=== PATIENT | female | born 1980 | race American Indian/Alaskan Native ===

== ENCOUNTER 2020-10-10 08:34 | Observation (INO) | payer OTHER ==
[2020-10-03 11:02] LABS: Hematocrit 34.2 % (30.3-42.9); Hemoglobin 11.4 gm/dl (10.1-14.3); Mean Corpuscular HGB Conc 33 % (30-34); Platelet Count 302 K/mm3 (140-440); Red Cell Distribution Width 16.6 % (13.2-15.2)
[2020-10-03 11:13] LABS: Mean Corpuscular Volume 70 fl (79-97)
--- NOTE | 2020-10-03 11:15 | Anesthesia Consultation ---
Anesthesia Consult and Med Hx Date of service: 10/10/20 - Airway Anesthetic Teeth Evaluation: Chipped ROM Head & Neck: Adequate Mental/Hyoid Distance: Adequate Mallampati Class: Class II Intubation Access Assessment: Good - Pre-Operative Health Status ASA Pre-Surgery Classification: ASA2 Proposed Anesthetic Plan: General Nerve Block: TAP - Pulmonary Hx Smoking: No Hx Respiratory Symptoms: No (+2FS) Hx Sleep Apnea: No (CHANDANA PRE SCREEN LOW RISK) - Cardiovascular System Hx Hypertension: Yes (X 8 YRS) - Central Nervous System Hx Psychiatric Problems: Yes (Anxiety) - Hematic Hx Anemia: Yes Hx Sickle Cell Disease: No - Other Systems Hx Cancer: No Hx Obesity: No
[2020-10-03 11:20] LABS: Blood Urea Nitrogen 6 mg/dL (7-17); Calcium 9.5 mg/dL (8.4-10.2); Hemolysis Index 2
[2020-10-03 11:24] LABS: BUN/Creatinine Ratio 12
--- NOTE | 2020-10-07 14:43 | History and Physical Report ---
History of Present Illness Date of examination: 10/04/20 History of present illness: Patient has been reassessed/reevaluated. H&P has been reviewed. No interval changes. 40 y.o. female presents with menorrhagia and dysmenorrhea. Pt has a history of heavy, painful periods that have now interfered with her ability to perform her daily duties. Patient's work up has included several transvaginal ultrasound which have revealed features of suspected adenomyosis. Pt was started on Orilissa and Lysteda 05/2020 which initially provided relief, but not anymore, ferny. with her last two cycles. Rates ABD cramping 12/15, wears ultra tampon and Poise pads, changing q 35 min d/t saturation, and experiences dizziness, headaches, and lightheadedness. Cycle occurs at different times each month, lasts 7 days, with heavy bleeding pattern Day 3 - Day 6. Denies intermenstrual bleeding, dyspareunia, postcoital bleeding, thyroid disease, fibroids, PCOS, or polyps. Patient desires definitive treatment ] Vital Signs: Patient Profile: 40 Years Old Female LMP: 09/25/2020 Height: 65 inches (166.37 cm) Weight: 184 pounds BMI: 30.62 Temp: 98.1 degrees F BP sittin / 80 (left arm) Menstrual History: LMP (date): 09/25/2020 Past History : 7 Term Births: 2 Premature Births: 1 Living Children: 3 Para: 3 Mult. Births: 0 Prev : 2 Prev. attempt? none Aborta: 4 Elect. Ab: 1 Spont. Ab: 3 Ectopics: 0 # 1 Delivery date: 03/26/1999 Weeks Gestation: 36 labor: no Delivery type: Anesthesia type: general Delivery location: [place] Sex: Male weight: 7-3 Name: Maximo Comments: FLORINHT Stat # 2 Delivery date: 2003 Weeks Gestation: 6 Delivery type: SAB # 3 Delivery date: 12/30/2005 Weeks Gestation: 39 labor: no Delivery type: Anesthesia type: spinal Delivery location: [place] Infant Sex: Male weight: 6-5 Name: Harsha Comments: Elective # 4 Delivery date: 2006 Weeks Gestation: 5 Delivery type: SAB Comments: No D&C # 5 Delivery date: 2009 Delivery type: SAB # 6 Delivery date: 03/2011 Delivery type: SAB Comments: No D&C # 7 Delivery date: 08/2012 Delivery type: Delivery location: [facility] [place] Sex: Female [employer]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 of genital herpes: yes Partner hx. of genital herpes: no Hx of STD: none Other: dx 2001 Current Allergies (reviewed today): No known allergies Past Medical History: Fibroids Herniated disc Past Surgical History: Back surgery (2008) herniated disc Knee Arthroscopy (2007) right (1999) (2005) with Tubal Ligation (2012) Family History Summary: General Comments - FH: Family History Breast Cancer Family History of Cervical Cancer Family History of Diabetes Family History of CVA or Stroke Family History of Hypertension Family History of Ovarian Cancer No Family History of Colon Cancer No Family History of DVT/PE on OCP Social History: Patient is single- Risk Factors: Smoked Tobacco Use: Never smoker Smokeless Tobacco Use: Never Passive Smoke Exposure: no Caffeine Use: 0 drinks per day Exercise: no Seatbelt Use: 100 % Alcohol Use: yes Type: occ Review of Systems General Complains of fatigue. Denies fever, chills, sweats, anorexia, weakness, malaise, weight loss and sleep disorder. Complains of menorrhagia, pelvic pain and painful periods. Denies vaginal discharge, incontinence, dysuria, hematuria, urinary frequency, amenorrhea, abnormal vaginal bleeding, genital sores, decreased li tim, painful sex, urinary urgency, hot flashes, vaginal dryness, vaginal itching and vaginal odor. CV Denies chest pains, palpitations, syncope, dyspnea on exertion, orthopnea, PND and peripheral edema. Resp Denies cough, dyspnea at rest, excessive sputum, hemoptysis, wheezing and pleurisy. GI Denies nausea, vomiting, diarrhea, constipation, change in bowel habits, abdominal pain, melena, hematochezia, jaundice, gas/bloating, indigestion/heartburn, dysphagia and odynophagia. Breast Denies left breast lump, right breast lump, nipple discharge, bloody discharge from nipple, breast pain, abnormal mammogram and breast enlargement. Psych Denies depression, anxiety, irritability and mood swings. Past History Past Medical History: other (SEE HPI) Past Surgical History: , Other (SEE HPI FOR DETAILS) Social history: single, full code, other (SEE HPI FOR DETAILS) Family history: other (SEE HPI FOR DETAILS) Medications and Allergies Allergies Allergy/AdvReac Type Severity Reaction Status Date / Time No Known Allergies Allergy Verified 10/02/20 16:48 Home Medications Medication Instructions Recorded Confirmed Last Taken Type Elagolix Sodium [Orilissa] 150 mg PO DAILY 10/02/20 10/02/20 Unknown History Ibuprofen [Motrin] 800 mg PO DAILY 10/02/20 10/02/20 Unknown History amLODIPine [Norvasc] 10 mg PO DAILY 10/02/20 10/02/20 Unknown History Active Meds: Active Medications Acetaminophen (Acetaminophen 500 Mg Tab) 1,000 mg PO ONCE ONE Stop: 10/10/20 06:01 Celecoxib (Celecoxib 200 Mg Cap) 400 mg PO PREOP NR Stop: 10/10/20 23:59 Fentanyl (Fentanyl 100 Mcg/2 Ml Inj) 100 mcg IV ONCE ONE Stop: 10/10/20 06:01 Lactated Ringer's (Lactated Ringers) 1,000 mls @ 125 mls/hr IV DIRECT BLAISE Cefazolin Sodium (Ancef/Sterile Water 2 Gm/20 Ml) 2 gm in 20 mls @ 80 mls/hr IV PREOP NR; Protocol Stop: 10/10/20 23:59 Magnesium Oxide (Magnesium Oxide 400 Mg Tab) 400 mg PO ONCE ONE Stop: 10/10/20 06:01 Midazolam HCl (Midazolam 2 Mg/2 Ml Inj) 2 mg IV PREOP NR Stop: 10/10/20 06:01 Review of Systems Constitutional: other (SEE HPI FOR DETAILS) Exam - Physical Exam Narrative exam: HEENT: normocephalic, no lesions or deformities Skin no ulcers, xanthomas Chest: respiratory effort normal, clear to auscultation CV: regular, normal S1-S2, no murmur, no rub, no gallop Abdomen: soft, non-tender, no masses, bowel sounds normal Neuro: no gross anomalities Extremities: no clubbing, cyanosis, or edema [employer]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 No evidence of cystocele or rectocele. Cervix: normal appearance, no lesions, no discharge Uterus: normal position, midline, mobile Tender to palpation Adnexae: Tender to palpation Rectovaginal: exam defered - Constitutional Vitals: Temp Pulse Resp BP Pulse Ox 99.3 F 79 20 155/99 100 10/03/20 10:15 10/03/20 10:15 10/03/20 10:15 10/03/20 10:15 10/03/20 10:15 Results - Labs CBC & Chem 7: 10/03/20 00:01 10/03/20 00:01 Assessment and Plan - Patient Problems (1) Intramural leiomyoma of uterus Current Visit: No Status: Acute Plan to address problem: Diagnosis explained to patient . Questions answered. Discussed with patient various medical, surgical and radiological therapies common for treatment including expectant management, myomectomy hysterectomy and uterine artery embolization Patient desires hysterectomy Discussed risks and benefits of laparotomy, laparoscopy, vaginal and robotic assisted approaches for hysterectomies. Patient desires robotic assisted total hysterectomy. Consent reviewed and signed . The risks and alternatives for this surgery were reviewed with the patient. Discuss the risks of the surgery including infection, bleeding possibly heavy enough to require a blood transfusion, possible damage to bowel, bladder or ureter. Patient understand that this surgery with make her sterile.Patient understands if her ovaries are removed she will become menopausal. Also if unable to complete robitcally a laparotomy may be required. Patient understands her risks of adjacent organ damage is increased due to her previous surgery(ies) Patient understands and desires to proceed. (2) Dysmenorrhea Current Visit: No Status: Acute Plan to address problem: Probably secondary to adenomyosis vs myoma (3) Menorrhagia Current Visit: No Status: Acute Qualifiers: Menorrhagia type: with regular cycle Qualified Code(s): N92.0 - Excessive and frequent menstruation with regular cycle (4) Pelvic pain Current Visit: No Status: Acute
[~2020-10-10 08:34] MED LIST: ACETAMINOPHEN 500 MG TAB PO ONE; CELECOXIB 200 MG CAP PO NR; LACTATED RINGERS 1,000 ML IV SCH; MAGNESIUM OXIDE 400 MG TAB PO ONE; MIDAZOLAM 2 MG/2 ML INJ IV NR; ceFAZolin/Water 2 GM/20 ML 2 GM/20 ML SYRINGE IV NR; fentaNYL 100 MCG/2 ML INJ IV ONE
[2020-10-10] MEDS ORDERED: BACTERIOSTATIC SODIUM CHLORIDE 0.9% 30 ML VIAL INFILTRATI ONE (09:57)
[2020-10-10] MEDS ORDERED: ACETAMINOPHEN 500 MG TAB ONE (10:15)
[2020-10-10] MEDS ORDERED: fentaNYL 100 MCG/2 ML INJ ONE (10:16)
[2020-10-10] MEDS ORDERED: MAGNESIUM OXIDE 400 MG TAB PO ONE (10:17)
[2020-10-10] MEDS ORDERED: BUPIVACAINE/PF (0.25%) 2.5 MG/ML 30 ML VIAL INFILTRATI ONE (10:56)
[2020-10-10] MEDS ORDERED: dexAMETHasone 4 MG/ML VIAL ONE (10:57)
[2020-10-10] MEDS ORDERED: MIDAZOLAM 2 MG/2 ML INJ IV SCH (11:00)
[2020-10-10] MEDS ORDERED: SUCCINYLCHOLINE CHLORIDE 200 MG/10 ML INJ MDV ONE (11:35)
[2020-10-10] MEDS ORDERED: ROCURONIUM 50 MG/5 ML INJ IV ONE (11:35)
[2020-10-10] MEDS ORDERED: KETOROLAC 30 MG/1 ML INJ ONE (11:35)
[2020-10-10] MEDS ORDERED: propofoL 200 MG/20 ML VIAL IV ONE (11:36)
[2020-10-10] MEDS ORDERED: LIDOCAINE PF 100 MG/5 ML (CARDIAC SYRINGE) IV ONE (11:36)
[2020-10-10] MEDS ORDERED: dexAMETHasone 20 MG/5 ML VIAL ONE (11:36)
[2020-10-10] MEDS ORDERED: ONDANSETRON 4 MG/2 ML INJ ONE (11:36)
[2020-10-10] MEDS ORDERED: ESMOLOL 100 MG/10 ML INJ IV ONE (11:36)
[2020-10-10] MEDS ORDERED: GLYCOPYRROLATE 0.4 MG/2 ML INJ ONE (11:41)
[2020-10-10] MEDS ORDERED: NEOSTIGMINE 10MG/10 ML INJ MDV ONE (11:41)
[2020-10-10] MEDS ORDERED: NEOMY 40 MG/POLYMYXIN B 200,000 UNITS/ML (GU) AMPULE IR ONE ×2 (11:46→12:50)
[2020-10-10] MEDS ORDERED: HYDROmorphone 1 MG/1 ML INJ ONE (12:24)
[2020-10-10] MEDS ORDERED: SODIUM CHLORIDE 0.9% IRR 1,500 ML BOTTLE IR ONE (12:51)
[2020-10-10] MEDS ORDERED: SODIUM CHLORIDE 0.9% IRRIG SOLN 2000 ML IR ONE (12:51)
[2020-10-10] MEDS ORDERED: METHYLENE BLUE 50 MG/10 ML AMP ONE (13:41)
[2020-10-10] MEDS ORDERED: METHYLENE BLUE 50 MG/10 ML AMP IRRIGATION ONE (13:52)
--- NOTE | 2020-10-10 15:10 | Operative Report ---
Operative Report Operative Report: Date of procedure: October 10, 2020 Pre-operative diagnosis: Menorrhalgia, dysmenorrhea, pelvic pain and uterine leiomyomata Post-operative diagnosis: Same plus pelvic adhesive disease Procedure name(s):Robotic Assisted Total Hysterectomy with bilateral salpingectomy with lysis of adhesions Surgeon: Cayetano Cortés MD Floor Technician: Thea Groves, certified phlebotomy technician Anesthesia: General EBL: 50 cc Complications: None Findings: On exam on anesthesia patient with a severely anterior cervix patient with uterus approximately 8 to 10 weeks in size with extensive adhesions of anterior uterine to anterior abdominal wall and to the bladder. Omental adhesions to the anterior abdominal wall and fundus of the uterus. Bilaterally interrupted fallopian tubes with Filshie clips in place. Normal-appearing ovaries Specimen(s): Uterus with cervix and bilateral fallopian tubes Procedure: Patient was brought to the operating room where general anesthesia was induced without difficulty. Patient was placed in the dorsal lithotomy position. Prepped and draped in the usual sterile manner for robotic procedure. Walton catheter was placed without difficulty. Speculum was placed in the vagina. Patient's cervix was extremely anterior. A medium V-Care Uterine manipulator was placed without difficulty. Attention was now switched to the patient's abdomen. A vertical supra-umbilicus incision was made with a scalpel. A 10-12 trocar was placed in this incision under direct visualization. Intra-abdominal placement was verified with no evidence of internal organ damage. The patient pelvic findings were noted as above. It was determined that the patient was a candidate for robotic procedure. On both sides the umbilical incision at about 8 cm, incisions were made for robotic trocars. Each robotic trocar was placed under direct visualization with no evidence of internal organ damage. One 5 mm trocar was placed 2 fingerbreadths above the right iliac crest. A 5 mm camera was placed in the right lower quadrant trocar, the 10-12 trocar was removed and a Terrence Spencer laparoscopic port closure device was placed through this incision under direct visualization with no evidence of internal organ damage. The camera was then replaced into this port. At this time the patient was placed in extreme Trendelenburg. The da Isael robot was then docked on the patient's left side. The trocars connected to the robot appropriately robotic instruments were placed under direct visualization no evidence of internal organ damage.. At this time I took my place under the robotic operating zaman. Initially started with robotic scissors and lysis of adhesions of the omentum and started with the adhesions of this thick anterior uterine wall to the abdominal wall. During the lysis of adhesions a thick adhesion band was approach with unclear plaints of the bladder, and the decision was made to attempt to isolate the the uterine vessels. Starting on the patient's right side the ureter was identified and found to be out of the operative field. Using the robotic vessel sealer the mesosalpinx under the fallopian tube were cauterized and cut starting from the distal end. Utero-ovarian complex was then cauterized and cut. This was followed by cauterizing and cutting the right fallopian tube and right round ligament. The broad ligament was then opened. The posterior broad ligament was then excised. The uterine vessels were skeletonized. The ureter was clearly seen out of the operative field. The bladder was pushed away from the anterior uterus. Could not clearly form the bladder flap due to the thick adhesions but the right uterine vessels were visualized, then cauterized and cut. Attention was then switched to the patient's left side. The same procedure was repeated on the left side with perform the salpingectomy followed by isolating the uterine vessels cauterized and cutting. To better identify the location of the bladder, feel the bladder with 180 cc of methylene blue. The bladder was more clearly seen with no evidence of cystotomy. I then started the colpotomy posteriorly at 6:00 until the V-Care could be seen. This incision was extended from 6:00 to 9:00. Then from 6:00 to 3:00. The cervix now could be visualized through the colpotomy and continue to form colpotomy along the down along cervix. This again isolated the bladder and I then made more incisions anteriorly lysing the adhesions and cleared the uterus from the bladder and completed a colpotomy with no evidence of damage to the bladder. The delinquent tax collector assistant remove the uterus from through the colpotomy site. The vaginal cuff was irrigated and cauterized and found to be hemostatic. The cuff was closed with roboticly using 0 V- Lock suture. This closure was hemostatic after irrigation and Bovie. All pedicles were inspected and found to be hemostatic. The ureters were identified bilaterally and found to be functioning normal. The patient had clear urine in the Walton catheter with no evidence of mixture with blood. Leixe was placed on the cuff and pedicles for postoperative hemostasis . All instruments were then removed. The large trocar sites were closed in layers 2-0 Vicryl and 4-0 Monocryl. The smaller incisions were closed subcuticularly with 4-0 Monocryl. Dermabond was placed over the skin incisions. The patient tolerated procedure well. She was awakened in the operating room and accompanied to the recovery room in good condition.
--- NOTE | 2020-10-10 16:32 | Post Anesthesia Evaluation ---
- Post Anesthesia Evaluation Patient Participated: Yes Airway Patent: Yes Stable Respiratory Function: Yes Nausea/Vomiting: No Temp > 96.8F: Yes Pain Manageable: Yes Adequeate Hydration: Yes Anesthesia Complications: No
--- NOTE | 2020-10-10 16:32 | Anesthesia Day of Surgery ---
Anesthesia Day of Surgery - Day of Surgery Patient Examined: Yes Patient H&P Reviewed: Yes Patient is NPO: Yes
[2020-10-10] MEDS ORDERED: D5W/LACTATED RINGERS 1,000 ML IV SCH (16:50)
[2020-10-10] MEDS ORDERED: ONDANSETRON 4 MG/2 ML INJ IV PRN (16:50)
[2020-10-10] MEDS ORDERED: ACETAMINOPHEN 325 MG TAB PO PRN (16:50)
[2020-10-10] MEDS ORDERED: MAGNESIUM HYDROXIDE (MOM) ORAL LIQD UDC PO PRN (16:50)
[2020-10-10] MEDS: KETOROLAC 30 MG/1 ML INJ IV SCH ×2 (17:52→23:50)
[2020-10-10] MEDS: oxyCODONE /ACETAMINOPHEN 5-325MG TAB PO PRN (18:38)
--- NOTE | 2020-10-10 19:23 | Event Note ---
Date: 10/10/20 Day of surgery. Discuss operative findings with patient and questions answered. Patient is complaining of postop pain and slight nausea. Patient with some elevated blood pressures we will give her antihypertensive medication now. Patient without fever. Will ambulate in halls this evening. Good urine output. We will continue routine postoperative care.
[2020-10-10] MEDS: ceFAZolin/NS 1 GM/50 ML 1 GM/50 ML BAG IV SCH (19:57)
[2020-10-10] MEDS ORDERED: amLODIPine 10 MG TAB PO SCH (20:00)
[2020-10-10] MEDS: DOCUSATE SODIUM 100 MG CAP PO SCH (21:56)
[2020-10-11] MEDS: oxyCODONE /ACETAMINOPHEN 5-325MG TAB PO PRN ×2 (01:58→07:50)
[2020-10-11] MEDS: ceFAZolin/NS 1 GM/50 ML 1 GM/50 ML BAG IV SCH (03:34)
[2020-10-11] MEDS: KETOROLAC 30 MG/1 ML INJ IV SCH (05:30)
[2020-10-11 07:32] LABS: Hematocrit 30.6 % (30.3-42.9); Hemoglobin 10.2 gm/dl (10.1-14.3)
[2020-10-11] MEDS ORDERED: amLODIPine 10 MG TAB PO SCH (10:00)
[2020-10-11] MEDS: DOCUSATE SODIUM 100 MG CAP PO SCH (10:22)
--- NOTE | 2020-10-11 10:54 | Short Stay Summary ---
Short Stay Documentation Date of service: 10/10/20 Narrative H&P: See preoperative dictated history and physical - History Past Medical History: other (SEE HPI) Past Surgical History: , Other (SEE HPI FOR DETAILS) Social history: single, full code, other (SEE HPI FOR DETAILS) - Allergies and Medications Current Medications: Allergies No Known Allergies Allergy (Verified 10/02/20 16:48) Home Medications Medication Instructions Recorded Confirmed Last Taken Type Elagolix Sodium [Orilissa] 150 mg PO DAILY 10/02/20 10/10/20 10/07/20 08:00 History Ibuprofen [Motrin] 800 mg PO DAILY 10/02/20 10/10/20 10/07/20 08:00 History amLODIPine [Norvasc] 10 mg PO DAILY 10/02/20 10/10/20 10/09/20 18:00 History Ibuprofen [Motrin] 800 mg PO TID PRN #30 tablet 10/10/20 Unknown Rx oxyCODONE /ACETAMINOPHEN [Percocet 1 - 2 tab PO Q6HR PRN #20 tablet 10/10/20 Unknown Rx 5/325 mg] Active Medications Acetaminophen (Acetaminophen 325 Mg Tab) 650 mg PO Q4H PRN PRN Reason: Pain MILD(1-3)/Fever >100.5/MCCALLUM Last Admin: 10/10/20 21:56 Dose: 650 mg Documented by: Amlodipine Besylate (Amlodipine 10 Mg Tab) 10 mg PO DAILY [facility] Amlodipine Besylate (Amlodipine 10 Mg Tab) 10 mg PO QDAY [facility] Last Admin: 10/10/20 19:56 Dose: 10 mg Documented by: Docusate Sodium (Docusate Sodium 100 Mg Cap) 100 mg PO BID [facility] Last Admin: 10/11/20 10:22 Dose: 100 mg Documented by: Dextrose/Lactated Ringer's ([email or web address]) 1,000 mls @ 125 mls/hr IV DIRECT [facility] Last Admin: 10/11/20 05:21 Dose: 125 mls/hr Documented by: Ibuprofen (Ibuprofen 800 Mg Tab) 800 mg PO Q8H PRN PRN Reason: Pain, Moderate (4-6) Ketorolac Tromethamine (Ketorolac 30 Mg/1 Ml Inj) 30 mg IV Q6H [facility] Stop: 10/11/20 15:59 Last Admin: 10/11/20 05:30 Dose: 30 mg Documented by: Magnesium Hydroxide (Magnesium Hydroxide (Mom) Oral Liqd Udc) 30 ml PO Q4H PRN PRN Reason: Constipation Ondansetron HCl (Ondansetron 4 Mg/2 Ml Inj) 4 mg IV Q8H PRN PRN Reason: Nausea And Vomiting Oxycodone/Acetaminophen (Oxycodone /Acetaminophen 5-325mg Tab) 2 tab PO Q6H PRN PRN Reason: Pain, Moderate (4-6) Last Admin: 10/11/20 07:50 Dose: 2 tab Documented by: - Physical exam General appearance: no acute distress Integumentary: no rash HEENT: Atraumatic Lungs: Normal air movement Breasts: deferred Heart: Regular rate Gastrointestinal: normal, normoactive bowel sounds, tenderness (Appropriate postoperatively), distended (Appropriate post robotic assisted surgery), other (Incisions healing well with no evidence of infection) Female Genitourinary: deferred Rectal Exam: deferred Extremities: no ischemia Neurological: Normal gait, Normal speech - Brief post op/procedure progress note Date of procedure: 10/10/20 (See dictated operative note for details) - Hospital course Hospital course: Patient was admitted and underwent above procedure without complications. Her post operative course was benign she was afebrile throughout. Patient postoperative hematocrit was in an acceptable range. Patient had no orthostatic symptoms. Patient was tolerating regular diet and voiding without difficulty at time of discharge. Patient incision was healing well without evidence of infection. - Disposition Condition at discharge: Good - Discharge Diagnoses (1) Intramural leiomyoma of uterus Status: Acute (2) Dysmenorrhea Status: Acute (3) Menorrhagia Status: Acute Qualifiers: Menorrhagia type: with regular cycle Qualified Code(s): N92.0 - Excessive and frequent menstruation with regular cycle (4) Pelvic pain Status: Acute Short Stay Discharge Plan Activity: advance as tolerated Diet: regular Wound: open to air Additional Instructions: [] Smoking cessation referral if applicable(refer to patient education folder for contact #) [x] Refer to [facility] Booklet Patient instructed no heavy lifting for 4 weeks. No intercourse for 8 weeks. Call office for fever, chills, nausea, vomiting or pain not controlled by pain medications. Ambulation is encouraged. Patient's call for heavy vaginal bleeding. Patient instructed to keep her scheduled post operative office appointment. Call your doctor immediately for: * Fever > 100.5 * Heavy vaginal bleeding ( >1 pad per hour) * Severe persistent headache * Shortness of breath * Reddened, hot, painful area to leg or breast * Drainage or odor from incision. * Keep incision clean and dry at all times and follow doctor's instructions regarding bathing/showering Please call your doctor on the earliest business day for the follow up appointment. Follow up with: PRIMARY CARE, [Primary Care Provider] - 7 Days Forms: [facility] Discharge Summary, Discharge Signature Page Prescriptions: Ibuprofen [Motrin] 800 mg PO TID PRN #30 tablet PRN Reason: Pain oxyCODONE /ACETAMINOPHEN [Percocet 5/325 mg] 1 - 2 tab PO Q6HR PRN #20 tablet PRN Reason: Pain
[2020-10-11 11:33] VITALS: BP 110/72
[2020-10-11] MEDS ORDERED: IBUPROFEN 800 MG TAB PO PRN (15:28)
== END 2020-10-11 12:00 | disposition home or self-care (01) ==
LOC: OR 08:34 → OB 15:28
PROVIDERS: ADMIT Obstetrics & Gynecology; ATTEND Obstetrics & Gynecology
DX: N94.6 Dysmenorrhea, unspecified (principal); N92.0 Excessive and frequent menstruation with regular cycle; D25.1 Intramural leiomyoma of uterus; M51.26 Other intervertebral disc displacement, lumbar region; R10.2 Pelvic and perineal pain; Z98.890 Other specified postprocedural states; Z90.710 Acquired absence of both cervix and uterus; Z98.51 Tubal ligation status; Z79.899 Other long term (current) drug therapy
CPT/HCPCS: 36415; 58571; 64450; 80048; 81025; 84703; 85014; 85018; 85027; 86850; 86900; 86901; 88302; 88307; 96361; 96365; 96366; 96375; 96376; A4217; C1765; G0378; J0330; J0690; J1100; J1170; J1885; J2001; J2250; J2405; J2704; J2710; J3010; J7120; J7121; Q9968; S2900

== ENCOUNTER 2020-10-12 18:33 | Observation (INO) | payer OTHER ==
[2020-10-12 19:15] LABS: Red Cell Distribution Width 17.2 % (13.2-15.2)
[2020-10-12 19:18] LABS: Basophils % (Auto) 0.2 % (0.0-1.8); Eosinophils # (Auto) 0.1 K/mm3 (0.0-0.4); Eosinophils % (Auto) 0.3 % (0.0-4.3); Hematocrit 37.6 % (30.3-42.9); Hemoglobin 11.9 gm/dl (10.1-14.3); Lymphocytes # (Auto) 1.3 K/mm3 (1.2-5.4); Lymphocytes % (Auto) 6.9 % (13.4-35.0); Mean Corpuscular HGB Conc 32 % (30-34); Mean Corpuscular Volume 71 fl (79-97); Monocytes # (Auto) 0.9 K/mm3 (0.0-0.8); Platelet Count 329 K/mm3 (140-440); Red Blood Count 5.29 M/mm3 (3.65-5.03)
[2020-10-12 19:37] LABS: Alanine Aminotransferase 11 units/L (7-56); Blood Urea Nitrogen 9 mg/dL (7-17); Calcium 9.1 mg/dL (8.4-10.2); Hemolysis Index 4
[2020-10-12 20:03] LABS: BUN/Creatinine Ratio 18
[2020-10-12] MEDS ORDERED: MORPHINE 4 MG/1 ML INJ IV ONE (23:36)
[2020-10-12] MEDS ORDERED: ONDANSETRON 4 MG/2 ML INJ IV ONE (23:36)
[2020-10-12] MEDS ORDERED: CEFEPIME/NS 2 GM/100 ML 2 GM/100 ML BAG IV ONE (23:37)
[2020-10-12] MEDS ORDERED: SODIUM CHLORIDE 0.9% 1000 ML IV SOLN IV ONE (23:37)
--- NOTE | 2020-10-13 00:57 | Cat Scan Report ---
CT ABDOMEN AND PELVIS WITH CONTRAST HISTORY: abd pain incr wbc. COMPARISON: CT abdomen/pelvis from 02/27/2018 TECHNIQUE: CT images of the abdomen and pelvis were obtained following administration of intravenous contrast. All CT scans at this location are performed using CT dose reduction for ALARA by means of automated exposure control. CONTRAST: 100 ml of intravenous contrast administered. FINDINGS: Lungs/bones: There is mild streaky right basilar atelectasis with otherwise clear lungs. Degenerativ e changes are present in the spine and pelvis with no acute osseous abnormality. Abdomen/pelvis: There is a small amount of subcutaneous gas and also gas in the space of Retzius in this patient who reportedly had a recent hysterectomy. There is a complex collection with intermixed air in the deep midline pelvis measuring 3.8 x 3.8 cm on image #156 of series #2. This may represent a hematoma. The small bowel is diffusely abnormal with fluid-filled dilated appearance and extensive mucosal enhancement. There is gentle tapering in the distal small bowel. The liver contains several tiny simple cysts. The gallbladder, spleen, pancreas, adrenals, and kidney s appear unremarkable with a small simple cyst in the midpole on the left. Bladder is mostly collapsed but otherwise appears unremarkable. Uterus is surgically absent. IMPRESSION: 1. Postoperative change in the abdomen as outlined above with complex and deep mid pelvic collection, likely a hematoma or evolving abscess. This finding is not well organized this point in time if this is in fact an abscess. 2. Diffusely abnormal appearance of the bowel most likely representing ileus change given the diffuse nature a lack of a single transition point. Signer Name: Jake Alfaro MD Signed: 10/13/2020 12:53 AM Workstation Name: [id number]
[2020-10-13] MEDS ORDERED: MORPHINE 4 MG/1 ML INJ IV ONE (01:28)
--- NOTE | 2020-10-13 01:39 | Emergency Department Report ---
ED Abdominal Pain HPI - General Chief Complaint: Nausea/Vomiting/Diarrhea Stated Complaint: VOMITING Time Seen by Provider: 10/12/20 23:27 Source: patient Mode of arrival: Wheelchair Limitations: Physical Limitation - History of Present Illness Initial Comments: Patient is a 40-year-old F Citizen Of The [place] female who is presenting with abdominal pain and multiple episodes of nausea vomiting throughout the last day. Patient had a laparoscopic hip to direct to be performed on 10/10/2020. Patient states initially she was doing well after the surgery. She has had 2 bowel movement since the surgery the last was earlier today. Patient states she has had some a bdominal distention and a great deal of pain. States she has been vomiting and can't keep anything down. Denies fever dysuria cough cold or congestion. - Related Data Home Medications Medication Instructions Recorded Confirmed Last Taken Elagolix Sodium [Orilissa] 150 mg PO DAILY 10/02/20 10/10/20 10/07/20 08:00 Ibuprofen [Motrin] 800 mg PO DAILY 10/02/20 10/10/20 10/07/20 08:00 amLODIPine [Norvasc] 10 mg PO DAILY 10/02/20 10/10/20 10/09/20 18:00 Previous Rx's Medication Instructions Recorded Last Taken Type Ibuprofen [Motrin] 800 mg PO TID PRN #30 tablet 10/10/20 Unknown Rx oxyCODONE /ACETAMINOPHEN [Percocet 1 - 2 tab PO Q6HR PRN #20 tablet 10/10/20 Unknown Rx 5/325 mg] Allergies Allergy/AdvReac Type Severity Reaction Status Date / Time No Known Allergies Allergy Verified 10/12/20 18:45 ED Review of Systems ROS: Stated complaint: VOMITING Other details as noted in HPI Comment: All other systems reviewed and negative ED Past Medical Hx - Past Medical History Hx Hypertension: Yes (X 8 YRS) Hx Sickle Cell Disease: No Hx Headaches / Migraines: Yes (MIGRAINES WITH PEROIDS) - Social History Smoking Status: Never Smoker - Medications Home Medications: Home Medications Medication Instructions Recorded Confirmed Last Taken Type Elagolix Sodium [Orilissa] 150 mg PO DAILY 10/02/20 10/10/20 10/07/20 08:00 History Ibuprofen [Motrin] 800 mg PO DAILY 10/02/20 10/10/20 10/07/20 08:00 History amLODIPine [Norvasc] 10 mg PO DAILY 10/02/20 10/10/20 10/09/20 18:00 History Ibuprofen [Motrin] 800 mg PO TID PRN #30 tablet 10/10/20 Unknown Rx oxyCODONE /ACETAMINOPHEN [Percocet 1 - 2 tab PO Q6HR PRN #20 tablet 10/10/20 Unknown Rx 5/325 mg] ED Physical Exam - General Limitations: Physical Limitation General appearance: alert, in no apparent distress - Head Head exam: Present: atraumatic, normocephalic - Eye Eye exam: Present: normal appearance - ENT ENT exam: Present: mucous membranes moist - Neck Neck exam: Present: normal inspection - Respiratory Respiratory exam: Present: normal lung sounds bilaterally. Absent: respiratory distress, wheezes, rales, rhonchi - Cardiovascular Cardiovascular Exam: Present: regular rate, normal rhythm, normal heart sounds. Absent: systolic murmur, diastolic murmur, rubs, gallop - GI/Abdominal GI/Abdominal exam: Present: distended, tenderness (diffuse), normal bowel soun ds, hypoactive bowel sounds. Absent: guarding, rebound - Extremities Exam Extremities exam: Present: normal inspection - Back Exam Back exam: Present: normal inspection - Neurological Exam Neurological exam: Present: alert, oriented X3 - Psychiatric Psychiatric exam: Present: normal affect, normal mood - Skin Skin exam: Present: warm, dry, intact, normal color. Absent: rash ED Course Vital Signs 10/12/20 18:45 Temperature 98.4 F Pulse Rate 111 H Respiratory 20 Rate Blood Pressure 142/91 O2 Sat by Pulse 98 Oximetry ED Medical Decision Making - Lab Data Result diagrams: 10/12/20 19:06 10/12/20 19:06 Lab Results 10/12/20 10/12/20 10/12/20 Range/Units 19:06 19:06 23:52 WBC 18.4 H (4.5-11.0) K/mm3 RBC 5.29 H (3.65-5.03) M/mm3 Hgb 11.9 (10.1-14.3) gm/dl Hct 37.6 D (30.3-42.9) % MCV 71 L (79-97) fl MCH 23 L (28-32) pg MCHC 32 (30-34) % RDW 17.2 H (13.2-15.2) % Plt Count 329 (140-440) K/mm3 Lymph % (Auto) 6.9 L (13.4-35.0) % Hood % (Auto) 5.0 (0.0-7.3) % Eos % (Auto) 0.3 (0.0-4.3) % Baso % (Auto) 0.2 (0.0-1.8) % Lymph # (Auto) 1.3 (1.2-5.4) K/mm3 [place] # (Auto) 0.9 H (0.0-0.8) K/mm3 Eos # (Auto) 0.1 (0.0-0.4) K/mm3 Baso # (Auto) 0.0 (0.0-0.1) K/mm3 Seg Neutrophils % 87.6 H (40.0-70.0) % Seg Neutrophils # 16.1 H (1.8-7.7) K/mm3 Sodium 136 L (137-145) mmol/L Potassium 3.7 (3.6-5.0) mmol/L Chloride 99.1 (98-107) mmol/L Carbon Dioxide 24 (22-30) mmol/L Anion Gap 17 mmol/L BUN 9 (7-17) mg/dL Creatinine 0.5 L (0.6-1.2) mg/dL Estimated GFR > 60 ml/min BUN/Creatinine Ratio 18 % Glucose 127 H (65-100) mg/dL Lactic Acid 1.10 (0.7-2.0) mmol/L Calcium 9.1 (8.4-10.2) mg/dL Total Bilirubin 1.10 (0.1-1.2) mg/dL AST 22 (5-40) units/L ALT 11 (7-56) units/L Alkaline Phosphatase 61 (35-129) units/L Total Protein 7.9 (6.3-8.2) g/dL Albumin 4.0 (3.9-5) g/dL Albumin/Globulin Ratio 1.0 % - Radiology Data [facility] [address] [place] [address] Cat Scan Report Signed Patient: CAMERON PATHAK MR #: [id number] : 1980 Acct:[id number] Age/Sex: 40 / F ADM Date: 10/12/20 Loc: ED Attending Dr: Ordering Physician: GRACE MARRERO MD Date of Service: 10/12/20 Procedure(s): CT abdomen pelvis w con Accession Number(s): [id number] cc: GRACE MARRERO MD CT ABDOMEN AND PELVIS WITH CONTRAST HISTORY: abd pain incr wbc. COMPARISON: CT abdomen/pelvis from 02/27/2018 TECHNIQUE: CT images of the abdomen and pelvis were obtained following administration of intravenous contrast. All CT scans at this location are performed using CT dose reduction for ALARA by means of automated exposure control. CONTRAST: 100 ml of intravenous contrast administered. FINDINGS: Lungs/bones: There is mild streaky right basilar atelectasis with otherwise clear lungs. Degenerative changes are present in the spine and pelvis with no acute osseous abnormality. Abdomen/pelvis: There is a small amount of subcutaneous gas and also gas in the space of Retzius in this patient who reportedly had a recent hysterectomy. There is a complex collection with intermixed air in the deep midline pelvis measuring 3.8 x 3.8 cm on image #156 of series #2. This may represent a hematoma. The small bowel is diffusely abnormal with fluid- filled dilated appearance and extensive mucosal enhancement. There is gentle tapering in the distal small bowel. The liver contains several tiny simple cysts. The gallbladder, spleen, pancreas , adrenals, and kidneys appear unremarkable with a small simple cyst in the midpole on the left. Bladder is mostly collapsed but otherwise appears unremarkable. Uterus is surgically absent. IMPRESSION: 1. Postoperative change in the abdomen as outlined above with complex and deep mid pelvic collection, likely a hematoma or evolving abscess. This finding is not well organized this point in time if this is in fact an abscess. 2. Diffusely abnormal appearance of the bowel most likely representing ileus change given the diffuse nature a lack of a single transition point. Signer Name: Jkae Alfaro MD Signed: 10/13/2020 12:53 AM Workstation Name: [email or web address] - Medical Decision Making Patient continues to have pain throughout her ED stay however nausea did improve with some Zofran. Started on IV fluids. CT shows definite ileus. No transition point indicative of bowel obstruction. A 4 x 4 centimeter fluid collection seen. There is some worry about hematoma or abscess. This could also represent some serous fluid of course. Patient will be admitted to Dr. Eagle who will see the patient in a few hours. Critical care attestation.: If time is entered above; I have spent that time in minutes in the direct care of this critically ill patient, excluding procedure time. ED Disposition Clinical Impression: Abdominal pain, Ileus, postoperative, Pelvic fluid collection, Leukocytosis Disposition: OP ADMIT IP TO THIS HOSP Is pt being admited?: Yes Does the pt Need Aspirin: No Condition: Stable Time of Disposition: 01:38
[2020-10-13] MEDS ORDERED: SODIUM CHLORIDE 0.9% 1000 ML 1,000 ML IV SCH (01:45)
[2020-10-13 02:38] LABS: Bacteria,Urine 1+ /HPF (Negative); Bilirubin,Urine NEG (Negative); Blood,Urine LG (Negative); Color,Urine Yellow (Yellow); Mucus,Urine 3+ /HPF; Urobilinogen,Urine < 2.0 mg/dL (<2.0)
[2020-10-13 02:45] LABS: Protein,Urine >500 mg/dL (Negative)
[2020-10-13] MEDS ORDERED: KETOROLAC 30 MG/1 ML INJ IV ONE (04:14)
[2020-10-13] MEDS ORDERED: ONDANSETRON 4 MG/2 ML INJ IV PRN (04:40)
[2020-10-13] MEDS: METOCLOPRAMIDE 10 MG/2 ML INJ IV SCH ×4 (06:12→22:59)
[2020-10-13] MEDS: cefTRIAXone/NS 1 GM/50 ML 1 GM/50 ML BAG IV SCH (06:13)
[2020-10-13] MEDS: FAMOTIDINE 20 MG/2 ML INJ IV SCH ×3 (06:24→22:58)
[2020-10-13] MEDS: KETOROLAC 30 MG/1 ML INJ IV PRN ×3 (09:25→22:58)
--- NOTE | 2020-10-13 13:17 | History and Physical Report ---
History of Present Illness Date of examination: 10/13/20 Date of admission: 10/13/20 01:39 Chief complaint: Pelvic and back pain with N/V. POD#3 s/p BETH HDZ LOA History of present illness: Patient is a 40-year-old F [place] female who is presenting with abdominal, pelvic and back pain and multiple episodes of nausea vomiting throughout yesterday. She had a robotic assisted laparoscopic total hysterectomy with bilateral salpingectomy and lysis of adhesions performed on 10/10/2020. Patient states initially she was doing well after the surgery. She has had 2 bowel movement since the surgery the last was earlier yesterday. Patient states she has had some abdominal distention and a great deal of pain. States she has been vomiting and can't keep anything down. Denies fever, dysuria, cough, cold or congestion. She also denies vaginal bleeding or abnormal vaginal discharge. She also denies chest pain or shortness of breath. Past History : 7 Term Births: 2 Premature Births: 1 Living Children: 3 Para: 3 Mult. Births: 0 Prev : 2 Prev. attempt? none Aborta: 4 Elect. Ab: 1 Spont. Ab: 3 Ectopics: 0 # 1 Delivery date: 03/26/1999 Weeks Gestation: 36 labor: no Delivery type: Anesthesia type: general Delivery location: [place] Sex: Male weight: 7-3 Name: Maximo Comments: FLORINHT Stat # 2 Delivery date: 2003 Weeks Gestation: 6 Delivery type: SAB # 3 Delivery date: 12/30/2005 Weeks Gestation: 39 labor: no Delivery type: Anesthesia type: spinal Delivery location: [place] Infant Sex: Male weight: 6-5 Name: Harsha Comments: Elective # 4 Delivery date: 2006 Weeks Gestation: 5 Delivery type: SAB Comments: No D&C # 5 Delivery date: 2009 Delivery type: SAB # 6 Delivery date: 03/2011 Delivery type: SAB Comments: No D&C # 7 Delivery date: 08/2012 Delivery type: [place] [facility] [place] Sex: Female [employer] History Abnormal PAP: positive, 2003 repeat pap Uterine Anomaly: positive fibroids Infection History HIV Risk Eval: no Personal hx. of genital herpes: yes Partner hx. of genital herpes: no Hx of STD: none Other: dx 2001 Current Allergies (reviewed today): No known allergies Past Medical History: Hypertension Fibroids Herniated disc Past Surgical History: Back surgery (2008) herniated disc Knee Arthroscopy (2007) right (1999) (2005) with Tubal Ligation (2012) BETH HDZ LOA (10/10/2020) Family History Summary: General Comments - FH: Family History Breast Cancer Family History of Cervical Cancer Family History of Diabetes Family History of CVA or Stroke Family History of Hypertension Family History of Ovarian Cancer No Family History of Colon Cancer No Family History of DVT/PE on OCP Social History: Patient is single- Risk Factors: Smoked Tobacco Use: Never smoker Smokeless Tobacco Use: Never Passive Smoke Exposure: no Caffeine Use: 0 drinks per day Exercise: no Seatbelt Use: 100 % Alcohol Use: yes Type: Social Medications and Allergies Allergies Allergy/AdvReac Type Severity Reaction Status Date / Time No Known Allergies Allergy Verified 10/12/20 18:45 Home Medications Medication Instructions Recorded Confirmed Last Taken Type Elagolix Sodium [Orilissa] 150 mg PO DAILY 10/02/20 10/10/20 10/07/20 08:00 History Ibuprofen [Motrin] 800 mg PO DAILY 10/02/20 10/10/20 10/07/20 08:00 History amLODIPine [Norvasc] 10 mg PO DAILY 10/02/20 10/10/20 10/09/20 18:00 History Ibuprofen [Motrin] 800 mg PO TID PRN #30 tablet 10/10/20 Unknown Rx oxyCODONE /ACETAMINOPHEN [Percocet 1 - 2 tab PO Q6HR PRN #20 tablet 10/10/20 Unknown Rx 5/325 mg] Active Meds: Active Medications Amlodipine Besylate (Amlodipine 10 Mg Tab) 10 mg PO DAILY BLAISE Famotidine (Famotidine 20 Mg/2 Ml Inj) 20 mg IV BID BLAISE Last Admin: 10/13/20 06:24 Dose: 20 mg Documented by: Dextrose/Sodium Chloride (D5ns) 1,000 mls @ 125 mls/hr IV DIRECT BLAISE Ceftriaxone Sodium (Rocephin/Ns 1 Gm/50 Ml) 1 gm in 50 mls @ 100 mls/hr IV Q24H BLAISE; Protocol Last Admin: 10/13/20 06:13 Dose: 100 mls/hr Documented by: Ketorolac Tromethamine (Ketorolac 30 Mg/1 Ml Inj) 30 mg IV Q6H PRN PRN Reason: Pain, Moderate (4-6) Stop: 10/18/20 04:39 Last Admin: 10/13/20 09:25 Dose: 30 mg Documented by: Metoclopramide HCl (Metoclopramide 10 Mg/2 Ml Inj) 10 mg IV Q6HR BLAISE Stop: 10/14/20 00:01 Last Admin: 10/13/20 12:29 Dose: 10 mg Documented by: Ondansetron HCl (Ondansetron 4 Mg/2 Ml Inj) 4 mg IV Q8H PRN PRN Reason: Nausea And Vomiting Review of Systems All systems: negative Gastrointestinal: abdominal pain, nausea, vomiting Genitourinary Female: pelvic pain Musculoskeletal: other (Mid back pain) Exam - Physical Exam Narrative exam: Patient is resting in bed. Positive flatus today. States she vomited last at 230 yesterday. She has had 2 bowel movements since surgery. - Constitutional Vitals: Temp Pulse Resp BP Pulse Ox 99.1 F 98 H 16 136/95 97 10/13/20 11:46 10/13/20 11:46 10/13/20 11:46 10/13/20 11:46 10/13/20 11:46 General appearance: Present: mild distress - Respiratory Respiratory effort: normal Respiratory: bilateral: CTA - Cardiovascular Rhythm: regular - Extremities Extremities: no ischemia, No edema - Abdominal General gastrointestinal: Present: distended, normal bowel sounds. Absent: rigid Female genitourinary: Present: other (No blood noted on the patient's pad that she is currently wearing.) - Integumentary Integumentary: Present: clear, warm, dry (Incisions clean dry and intact) - Psychiatric Psychiatric: appropriate mood/affect, intact judgment & insight, memory intact, cooperative Results - Labs CBC & Chem 7: 10/12/20 19:06 10/12/20 19:06 Labs: Abnormal lab results 10/12/20 10/12/20 10/13/20 Range/Units 19:06 19:06 00:31 WBC 18.4 H (4.5-11.0) K/mm3 RBC 5.29 H (3.65-5.03) M/mm3 MCV 71 L (79-97) fl MCH 23 L (28-32) pg RDW 17.2 H (13.2-15.2) % Lymph % (Auto) 6.9 L (13.4-35.0) % [place] # (Auto) 0.9 H (0.0-0.8) K/mm3 Seg Neutrophils % 87.6 H (40.0-70.0) % Seg Neutrophils # 16.1 H (1.8-7.7) K/mm3 Sodium 136 L (137-145) mmol/L Creatinine 0.5 L (0.6-1.2) mg/dL Glucose 127 H (65-100) mg/dL U Epithel Cells (Auto) 14.0 H (0-13.0) /HPF - Imaging and Cardiology CT scan - abdomen: report reviewed CT scan - pelvis: report reviewed Assessment and Plan - Patient Problems (1) History of robot-assisted laparoscopic hysterectomy Current Visit: Yes Status: Acute Plan to address problem: POD#3 (2) Nausea Current Visit: Yes Status: Acute Plan to address problem: No vomiting since yesterday however patient is on scheduled Reglan. We will continue n.p.o. for now. Consider advancing to clear liquids tomorrow. (3) Hypertension Current Visit: Yes Status: Chronic Plan to address problem: Continue amlodipine with sips of water for now (4) Hematuria Current Visit: Yes Status: Acute Plan to address problem: Urine culture is pending. With patient's complaint of mid back pain we will proceed with bilateral renal ultrasound today. (5) Back pain Current Visit: Yes Status: Chronic Qualifiers: Back pain laterality: bilateral (6) Abdominal pain Current Visit: Yes Status: Acute Qualifiers: Abdominal location: right lower quadrant Qualified Code(s): R10.31 - Right lower quadrant pain Plan to address problem: No obvious evidence of appendicitis. (7) Ileus, postoperative Current Visit: Yes Status: Acute Plan to address problem: Continue n.p.o. (8) Leukocytosis Current Visit: Yes Status: Acute Plan to address problem: May be secondary to surgery however will repeat in a.m. (9) Pelvic fluid collection Current Visit: Yes Status: Acute Plan to address problem: Probable secondary to postoperative changes. However will continue Rocephin for possible abscess formation. (10) Pelvic pain Current Visit: No Status: Acute
[2020-10-13] MEDS: D5W/0.9% NACL 1,000 ML IV SCH (16:39)
[2020-10-13] MEDS: amLODIPine 10 MG TAB PO SCH (16:50)
[2020-10-13] MEDS: HYDROmorphone 1 MG/1 ML INJ IV PRN (19:06)
--- NOTE | 2020-10-13 21:54 | Ultrasound Report ---
ULTRASOUND RENAL INDICATION: hematuria, back pain. COMPARISON: No relevant prior imaging study available. FINDINGS: RIGHT KIDNEY: Size: 11.7 cm. Echogenicity: Normal. Cortical thickness: Normal. Hydronephrosis: None. Cyst or mass: None. Stones: None. LEFT KIDNEY: Size: 10.9 cm. Echogenicity: Normal. Cortical thickness: Normal. Hydronephrosis: None. Cyst or mass: None. Stones: None. Urinary Bladder: No significant abnormality. Free Fluid: None. Additional Findings: None. IMPRESSION: No significant abnormality. Signer Name: Pieter Cohen MD Signed: 10/13/2020 9:50 PM Workstation Name: [id number]
[2020-10-14] MEDS: HYDROmorphone 1 MG/1 ML INJ IV PRN (04:17)
[2020-10-14] MEDS: cefTRIAXone/NS 1 GM/50 ML 1 GM/50 ML BAG IV SCH (05:45)
[2020-10-14 05:54] LABS: Basophils % (Auto) 0.3 % (0.0-1.8); Eosinophils # (Auto) 0.3 K/mm3 (0.0-0.4); Eosinophils % (Auto) 2.6 % (0.0-4.3); Hematocrit 33.1 % (30.3-42.9); Hemoglobin 10.7 gm/dl (10.1-14.3); Lymphocytes # (Auto) 1.2 K/mm3 (1.2-5.4); Lymphocytes % (Auto) 10.2 % (13.4-35.0); Mean Corpuscular HGB Conc 32 % (30-34); Mean Corpuscular Volume 71 fl (79-97); Monocytes # (Auto) 0.8 K/mm3 (0.0-0.8); Platelet Count 284 K/mm3 (140-440); Red Blood Count 4.69 M/mm3 (3.65-5.03); Red Cell Distribution Width 17.1 % (13.2-15.2)
[2020-10-14 06:20] LABS: Blood Urea Nitrogen 9 mg/dL (7-17); Calcium 8.6 mg/dL (8.4-10.2); Hemolysis Index 6
[2020-10-14 06:45] LABS: BUN/Creatinine Ratio 18
--- NOTE | 2020-10-14 08:49 | Progress Note ---
Assessment and Plan - Patient Problems (1) History of robot-assisted laparoscopic hysterectomy Current Visit: Yes Status: Acute Plan to address problem: -con't routine post op care -npo for now (2) Ileus, postoperative Current Visit: Yes Status: Acute Plan to address problem: -pt now w/o nausea or emesis since being npo. Will try to ADAT once evaluated by IR if procedure not being done today or no need for the procedure. -ambulate today (3) Nausea Current Visit: Yes Status: Acute (4) Pelvic fluid collection Current Visit: Yes Status: Acute Plan to address problem: -will consult IR for need for draiange of the collection -plan of care d/w pt and questions were addressed and answered -Blood cx negative and WBC improved this am -con't current antibx for now. Subjective - Subjective Date of service: 10/14/20 Principal diagnosis: POD#4 s/pRATH 1) illeus 2)n/v 3)?pelvic abscess Interval history: Pt states she is feeling a little better today and desires to eat. She does state she had both flattus and BM on yesterday and no emesis since being npo and since taking her blood pressure medications. I d/w that I am going to consult IR for input in terms of possible draiange of ? abscess vs hematoma. I advised that this is due to temp she had earlier this am and that it was felt the changes on CT was related to post operative changes. She expressed understanding. I also advised that she will remain npo until seen by the IR team. Pt expressed understanding and agrees with plan of care. Patient reports: appetite normal, voiding normally, pain well controlled, flatus, bowel movement, ambulating normally, no dizzy ambulation, no nauseated Objective - Vital Signs Latest vital signs: Vital Signs Temp Pulse Resp Resp BP Pulse Ox 10/14/20 04:21 99.7 F H 101 H 20 138/94 97 10/14/20 04:17 14 10/13/20 23:55 98.7 F 105 H 20 129/87 99 10/13/20 22:58 12 10/13/20 20:18 100.9 F H 113 H 20 145/96 98 10/13/20 20:00 98 10/13/20 19:06 20 10/13/20 16:22 98.8 F 101 H 16 133/80 97 10/13/20 14:52 20 10/13/20 11:46 99.1 F 98 H 16 136/95 97 10/13/20 09:30 20 10/13/20 09:25 20 Intake and Output 10/13/20 10/14/20 10/14/20 22:59 06:59 14:59 Output Total 75 200 Balance -75 -200 Output: Urine 75 200 Void 75 200 Other: Total, Output Amount 75 100 # Voids Void 200 - Exam Breasts: Present: deferred Cardiovascular: Present: Normal S1, Normal S2 Lungs: Present: Clear to auscultation, Normal air movement Abdomen: Present: normal appearance, soft, distention (mildly), normal bowel sounds Uterus: Present: other (surgically abscent) Extremities: Present: normal. Absent: tenderness, edema Incision: Present: normal, dry, intact - Labs Labs: Abnormal lab results 10/14/20 10/14/20 Range/Units 05:26 05:26 WBC 11.6 H (4.5-11.0) K/mm3 MCV 71 L (79-97) fl MCH 23 L (28-32) pg RDW 17.1 H (13.2-15.2) % Lymph % (Auto) 10.2 L (13.4-35.0) % Seg Neutrophils % 79.9 H (40.0-70.0) % Seg Neutrophils # 9.3 H (1.8-7.7) K/mm3 Creatinine 0.5 L (0.6-1.2) mg/dL
--- NOTE | 2020-10-14 10:16 | Event Note ---
Date: 10/14/[address] scan. 40-year-old female with RATH with post operative fluid collection immediately superior to the vaginal cuff. Unfortunately, the fluid collection is completely surrounded by bowel making this non-accessible. Given its location adjacent to the vaginal cuff, it will likely drain through the vaginal cuff if it is not a sterile collection. Consider repeat CT scan in the next few days for reevaluation. Consider infectious disease consult.
[2020-10-14] MEDS: KETOROLAC 30 MG/1 ML INJ IV PRN ×2 (10:44→21:00)
[2020-10-14] MEDS: FAMOTIDINE 20 MG/2 ML INJ IV SCH ×2 (10:44→21:00)
[2020-10-14] MEDS: amLODIPine 10 MG TAB PO SCH ×2 (10:45→17:51)
[2020-10-14] MEDS: D5W/0.9% NACL 1,000 ML IV SCH (12:16)
--- NOTE | 2020-10-14 12:36 | Event Note ---
Date: 10/14/[address] Ibrahim with thanks. Will con't antibx for now and allow clear liquids at this time. Recommendations noted.
[2020-10-15] MEDS: cefTRIAXone/NS 1 GM/50 ML 1 GM/50 ML BAG IV SCH (05:20)
[2020-10-15] MEDS: KETOROLAC 30 MG/1 ML INJ IV PRN ×2 (05:29→16:50)
[2020-10-15] MEDS ORDERED: oxyCODONE /ACETAMINOPHEN 5-325MG TAB PO PRN (11:00)
[2020-10-15] MEDS: amLODIPine 10 MG TAB PO SCH (11:22)
[2020-10-15] MEDS: FAMOTIDINE 20 MG/2 ML INJ IV SCH ×2 (12:33→22:05)
--- NOTE | 2020-10-15 12:38 | Progress Note ---
Assessment and Plan Afebrile >24hours Doing well Will have dietary talk with her for her food preference. Will consider repeat CT scan in the next few days for reevaluation Hold ID consult for now since she is improving with current regimen Will consider changing to po antibiotics once tolerating solids and UC ID and sens available Plan of care discussed with patient, she voiced and agrees with plan of care - Patient Problems (1) History of robot-assisted laparoscopic hysterectomy Current Visit: Yes Status: Acute (2) Pelvic fluid collection Current Visit: Yes Status: Acute Plan to address problem: Per Dr. Ibrahim will consider repeat CT scan Continue Rocephin (3) Nausea Current Visit: Yes Status: Acute Plan to address problem: Improved (4) Hypertension Current Visit: Yes Status: Chronic Plan to address problem: Continue Amlodipine (5) Hematuria Current Visit: Yes Status: Acute Plan to address problem: ID and sensitivity pending (6) Back pain Current Visit: Yes Status: Chronic Qualifiers: Back pain laterality: bilateral (7) Abdominal pain Current Visit: Yes Status: Acute Qualifiers: Abdominal location: right lower quadrant Qualified Code(s): R10.31 - Right lower quadrant pain Plan to address problem: Improved (8) Ileus, postoperative Current Visit: Yes Status: Resolved (9) Leukocytosis Current Visit: Yes Status: Resolved (10) Pelvic pain Current Visit: No Status: Acute Plan to address problem: Improved Subjective - Subjective Date of service: 10/15/20 Principal diagnosis: POD#5 s/p RATH 1) illeus 2)n/v 3)?pelvic abscess Interval history: Resting in bed, pain improved. Desires clear liquids b/c she does not like the mechanical soft diet. Slight vaginal discharge. No bleeding. Ambulating well. Patient reports: appetite normal, flatus Objective - Vital Signs Latest vital signs: Vital Signs Temp Pulse Resp BP BP Pulse Ox 10/15/20 08:00 0 L 10/15/20 07:44 98.0 F 82 18 131/90 98 10/15/20 04:24 99.2 F 92 H 20 139/85 98 10/15/20 01:00 98.5 F 92 H 18 134/94 134/94 97 10/14/20 20:45 98.3 F 92 H 18 137/90 99 10/14/20 19:30 98 10/14/20 17:51 77 141/94 10/14/20 17:00 98.1 F 87 18 141/94 100 Intake and Output 10/14/20 10/15/20 10/15/20 22:59 06:59 14:59 Intake Total 480 Output Total 600 Balance -120 Intake: Oral 480 Output: Urine 600 Void 600 Other: Total, Intake Amount 240 Total, Output Amount 200 Voiding Method Toilet # Voids Void 1 - Exam Breasts: Present: deferred Cardiovascular: Present: Regular rate Lungs: Present: Clear to auscultation, Normal air movement Abdomen: Present: normal appearance, soft, normal bowel sounds Extremities: Present: normal. Absent: tenderness, edema Incision: Present: normal, dry, intact
[2020-10-16] MEDS: cefTRIAXone/NS 1 GM/50 ML 1 GM/50 ML BAG IV SCH (06:01)
[2020-10-16] MEDS: KETOROLAC 30 MG/1 ML INJ IV PRN (06:01)
[2020-10-16] MEDS: FAMOTIDINE 20 MG/2 ML INJ IV SCH ×2 (09:43→10:00)
[2020-10-16] MEDS: amLODIPine 10 MG TAB PO SCH ×2 (11:00→11:45)
--- NOTE | 2020-10-16 11:51 | Discharge Summary ---
Providers - Providers Date of Admission: 10/13/20 01:39 Date of discharge: 10/16/20 Attending physician: MARIFER EAGLE 10/14/20 08:53 Consult to Physician [CONS] Routine Comment: Consulting Provider: TIN LIU Physician Instructions: Reason For Exam: evaluate for drainage of pelvic fluid collection 10/15/20 13:00 Consult to Dietitian/Nutrition [CONS] Routine Physician Instructions: Dietary Consult yoan Eagle MD request Reason For Exam: Reason for Consult: Diet education Primary care physician: [employer] Hospitalization Reason for admission: Persistent nausea, vomiting, pelvic pain and pelvic fluid collection Condition: Stable Pertinent studies: Abdominal pelvic CT scan, renal ultrasound Procedures: None Hospital course: Please see dictated history and physical for details. Patient was admitted for pelvic fluid collection seen on CT scan with a possible abscess versus hematoma also patient with a ileus noted on CT scan. Patient was then placed n.p.o. and started on prophylactic antibiotics. She was also given antiemetic medication. Patient nausea and vomiting resolved with patient having normal bowel movements passing flatus. Patient was advance diet which she tolerated well. Rule out abscess patient only had highest temp of 100.9 hospital day one but with afebrile throughout the rest of hospital stay. Blood cultures returned negative. Patient renal ultrasound was also normal was done secondary to hematuria noted on admission. Patient's ileus resolved also most likely pelvic hematoma due to her recent surgery patient pain improved on pain medication and patient desires discharge home. Disposition: TO HOME OR SELFCARE Final Discharge Diagnosis (Prints w/discharge instructions): Ileus probable pelvic hematoma. Time spent for discharge: 15 minutes - Discharge Diagnoses (1) Pelvic pain Status: Acute (2) Abdominal pain Status: Acute Qualifiers: Abdominal location: right lower quadrant Qualified Code(s): R10.31 - Right lower quadrant pain (3) Ileus, postoperative Status: Resolved (4) Pelvic fluid collection Status: Acute (5) History of robot-assisted laparoscopic hysterectomy Status: Chronic (6) Hypertension Status: Chronic Qualifiers: Hypertension type: primary hypertension Qualified Code(s): I10 - Essential (primary) hypertension Core Measure Documentation - Palliative Care Palliative Care/ Comfort Measures: Not Applicable - Core Measures Any of the following diagnoses?: none Exam - Constitutional Vitals: Temp Pulse Resp BP Pulse Ox 98.7 F 78 20 137/95 0 L 10/16/20 07:53 10/16/20 07:53 10/16/20 09:53 10/16/20 07:53 10/16/20 09:53 General appearance: Present: no acute distress - EENT ENT: hearing intact - Respiratory Respiratory effort: normal - Cardiovascular Rhythm: regular - Extremities Extremities: no ischemia, pulses intact - Abdominal General gastrointestinal: Present: soft, tender (Slightly appropriate for postoperative state), non-distended, other (Incisions healing well) Female genitourinary: Present: deferred - Rectal Rectal Exam: deferred - Integumentary Integumentary: Present: clear, warm, dry - Musculoskeletal Musculoskeletal: gait normal, strength equal bilaterally - Psychiatric Psychiatric: appropriate mood/affect, intact judgment & insight - Neurologic Neurologic: moves all extremities Plan Activity: advance as tolerated Diet: regular, clear liquids Additional Instructions: Patient instructed no heavy lifting for 4 weeks. No intercourse for 8 weeks. Call office for fever, chills, nausea, vomiting or pain not controlled by pain medications. Ambulation is encouraged. Patient's call for heavy vaginal bleeding. Patient instructed to keep her scheduled post operative office appointment. For tomorrow Plan of Treatment: Patient to keep her appointment tomorrow probable formal ultrasound to evaluate her pelvic fluid collection noted on admission Follow up with: PRIMARY CAREMD [Primary Care Provider] - 7 Days
[2020-10-16 13:18] VITALS: BP 135/86
== END 2020-10-16 13:45 | disposition home or self-care (01) ==
LOC: ED 18:33 → OB 10-13 01:39
PROVIDERS: ADMIT Obstetrics & Gynecology; ATTEND Obstetrics & Gynecology
DX: N99.840 Postprocedural hematoma of a genitourinary system organ or structure following a genitourinary system procedure (principal); K56.7 Ileus, unspecified; D72.829 Elevated white blood cell count, unspecified; R10.2 Pelvic and perineal pain; R11.0 Nausea; I10 Essential (primary) hypertension; D25.9 Leiomyoma of uterus, unspecified; M51.25 Other intervertebral disc displacement, thoracolumbar region; G43.909 Migraine, unspecified, not intractable, without status migrainosus; R31.9 Hematuria, unspecified; M54.9 Dorsalgia, unspecified; Z79.899 Other long term (current) drug therapy; Z98.891 History of uterine scar from previous surgery; Z98.51 Tubal ligation status; Z90.710 Acquired absence of both cervix and uterus
CPT/HCPCS: 36415; 74177; 76770; 80048; 80053; 81001; 82140; 85025; 87040; 87076; 87086; 87186; 96361; 96365; 96366; 96367; 96375; 96376; 99285; G0378; J0692; J0696; J1170; J1885; J2270; J2405; J2765; J7030; J7042; Q9967